=== PATIENT | male | born 1995 | race Caucasian/White ===

== ENCOUNTER 2018-03-29 20:00 | Emergency (ER) | payer OTHER ==
--- NOTE | 2018-03-29 19:57 | ER Report ---
History and Physical Time Seen By MD: 19:57 (MANOLO VALVERDE DO) HPI/ROS CHIEF COMPLAINT: Ruptured dislocation of left ankle HISTORY OF PRESENT ILLNESS: 23-year-old male [place] crashing on a skateboard. He called EMS to bring him in. He has obvious deformity of his left ankle. It's rotated about 90 and pushed off the backside of the tibia. He is a tiny abrasion. There is no obvious open fracture. The foot has neurovascular compromise is somewhat bluish in nature and congestion. She's complaining of 10/10 pain. He received Zofran 4 mg IV and fentanyl 100 g by EMS in the field. His foot was splinted in a pillow in a position of comfort. Patient denies any other injuries. Patient was asked about his tetanus status. He thinks he is less than 10 years and up-to-date. (MANOLO VALVERDE DO) Allergies: Coded Allergies: No Known Drug Allergies (Unverified , 06/20/17) Home Meds Active Scripts Hydrocodone Bit/Acetaminophen (NORCO 5-325 TABLET) 1 Each Tablet, 1-2 EACH PO Q4H PRN for PAIN, #20 TAB Prov:MANOLO VALVERDE DO 03/29/18 Hydrocodone Bit/Acetaminophen (HYDROCODON-ACETAMINOPHEN 5-325) 1 Each Tablet, 1 EACH PO Q4-6H PRN for PAIN, #12 TAB Prov:JOVITA SELLERS FIELD AGRONOMIST 06/20/17 Past Medical/Surgical History History of dislocated left shoulder skateboarding 2016 (MANOLO VALVERDE DO) Reviewed Nurses Notes: Yes Old Medical Records Reviewed: Yes (MANOLO VALVERDE DO) Hx Smoking: No Hx Substance Use Disorder: No (MANOLO VALVERDE DO) Constitutional Vital Sign - Last 24 Hours 03/29/18 03/29/18 03/29/18 03/29/18 20:02 20:02 20:03 20:04 Temp 99.1 Pulse 75 72 74 72 Resp 27 46 16 B/P (MAP) 128/87 128/87 (101) Pulse Ox 98 97 98 98 O2 Delivery Room Air 03/29/18 03/29/18 03/29/18 03/29/18 20:05 20:06 20:07 20:08 Pulse 74 75 71 74 Resp 33 22 25 32 Pulse Ox 96 97 98 98 03/29/18 03/29/18 03/29/18 03/29/18 20:09 20:10 20:11 20:12 Pulse 81 81 73 78 Resp 25 11 19 22 Pulse Ox 95 96 92 91 03/29/18 03/29/18 03/29/18 03/29/18 20:13 20:14 20:15 20:16 Pulse 73 79 74 76 Resp 54 28 31 30 Pulse Ox 90 93 95 95 03/29/18 03/29/18 03/29/18 03/29/18 20:17 20:18 20:19 20:20 Pulse 71 76 72 67 Resp 50 36 26 25 Pulse Ox 97 97 99 100 03/29/18 03/29/18 03/29/18 03/29/18 20:21 20:22 20:23 20:24 Pulse 69 77 84 66 Resp 21 25 9 B/P (MAP) 139/93 (108) 128/87 (101) Pulse Ox 100 100 100 99 03/29/18 03/29/18 03/29/18 03/29/18 20:25 20:26 20:27 20:28 Pulse 61 73 ? Resp 11 16 18 46 B/P (MAP) 124/84 (97) 117/85 (96) Pulse Ox 99 100 97 99 03/29/18 03/29/18 03/29/18 03/29/18 20:29 20:30 20:31 20:32 Pulse 57 73 59 ??? Resp 18 25 26 20 B/P (MAP) 127/86 (100) 130/86 (101) Pulse Ox 100 100 100 100 03/29/18 03/29/18 03/29/18 03/29/18 20:33 20:34 20:35 20:36 Pulse 57 58 59 55 Resp 12 10 20 28 B/P (MAP) 133/88 (103) 122/89 (100) Pulse Ox 100 100 100 88 03/29/18 03/29/18 03/29/18 03/29/18 20:37 20:38 20:39 20:40 Pulse 54 54 61 ??? Resp 16 12 15 28 B/P (MAP) 131/94 (106) 128/88 (101) Pulse Ox 100 100 100 100 03/29/18 03/29/18 03/29/1818 20:41 20:42 20:43 20:44 Pulse 69 58 67 61 Resp 33 16 25 21 B/P (MAP) 135/93 (107) 140/102 (115) Pulse Ox 98 83 98 80 03/29/18 03/29/18 03/29/18 03/29/18 20:45 20:46 20:47 20:48 Pulse 67 62 60 58 Resp 18 48 25 32 B/P (MAP) 125/94 (104) 122/91 (101) Pulse Ox 100 85 100 94 03/29/18 03/29/18 03/29/18 03/29/18 20:49 20:50 20:51 20:52 Pulse 58 ??? 58 60 Resp 40 15 19 17 B/P (MAP) 124/96 (105) 127/94 (105) Pulse Ox 100 100 100 99 03/29/18 03/29/18 03/29/18 03/29/18 20:53 20:54 20:55 20:56 Pulse 70 68 64 73 Resp 35 14 23 32 Pulse Ox 100 98 93 90 03/29/18 03/29/18 03/29/18 03/29/18 20:57 20:58 20:59 21:00 Pulse 69 73 61 72 Resp 23 27 28 9 B/P (MAP) 123/81 (95) Pulse Ox 89 92 92 94 03/29/18 03/29/18 03/29/18 03/29/18 21:01 21:02 21:04 21:05 Pulse 70 65 63 74 Resp 21 11 41 11 Pulse Ox 92 88 97 88 03/29/18 03/29/18 03/29/18 21:06 21:07 21:14 Pulse 74 69 85 Resp 22 24 16 B/P (MAP) 132/81 (98) Pulse Ox 87 90 92 O2 Delivery Room Air [facility] Physical Exam General appearance: Moderate Respiratory: Chest is non tender, lungs are clear to auscultation. Cardiac: Regular rate and rhythm Extremities: Examination of the left lower extremity reveals obvious deformity. The left ankle is rotated 90 externally and the ankle has been displaced posteriorly off the end of the ankle mortise. Foot appears mildly cyanotic. There is capillary refill. Patient notes moderate pain with any palpation or movement. There is an abrasion over the anterior skin of the ankle. There is no obvious penetration or open fracture noted DIFFERENTIAL DIAGNOSIS: After history and physical exam differential diagnosis was considered for sprain, strain, fracture, dislocation, contusion, abrasion (MANOLO VALVERDE DO) Medical Decision Making EKG/Imaging Imaging X-ray: Left ankle, 3 views was obtained. I viewed the images myself on the PACS system. My interpretation of the images is: Obvious fracture of the distal shaft of the fibula, there is displacement of the talus posteriorly, there is no obvious fracture of the medial malleolus.. The radiologist interpretation had no clinically significant variation from this interpretation. X-ray: Left ankle, 2 views was obtained. I viewed the images myself on the PACS system. My interpretation of the images is: There is reduction of the obvious dislocation. There is good alignment. There is still the distal fibular fracture that is mildly displaced now.. The radiologist interpretation had no clinically significant variation from this interpretation. (MANOLO VALVERDE DO) ED Course/Re-evaluation Clinical Indication for ER IV: Hydration, IV Access ED Course Patient was admitted to an examination room by EMS. H&P was done. The differential diagnoses was considered. Diagnostic x-rays were performed. Patient with obvious deformity and dislocation of his left ankle. Diagnostic x- rays show dislocation and fracture of the distal fibula. Patient's foot appears to be vascularly compromised. A discussion about conscious sedation was had with the patient. He had previous constipation here approximately 10 months ago in June for dislocated left shoulder from skateboarding. He tolerated the procedure well. At that time. Patient gives verbal consent as well as written consent. The risks and benefits were discussed. Nurse practitioner, Deejay Coughlin was recruited to assist in relocation of the left ankle dislocation. He performed a procedure under my supervision while I performed conscious sedation. He apply traction and internal rotation and had good reduction of the dislocation. Neurovascular function was confirmed intact. Patient's anterior abrasion was dressed with anabolic ointment and Adaptic. He was then placed in a posterior splint and a stirrup splint to stabilize his unstable ankle and fibular fracture. Patient was equipped with crutches and discharged home after an hour of observation. She was provided a prescription for [place] for pain relief. Patient has [employer] insurance of the following up at the [facility] in [facility]. She'll he was given information to follow up with Dr. Villaseñor orthopedic surgeon here in [facility]. Procedure: Procedural sedation. A pre-sedation evaluation was completed on the patient at what time?. Patient is an appropriate candidate for procedural sedation. The risks of the sedation were discussed with the patient. A time out was completed. The patient was r eevaluated immediately prior to initiation of sedation. The patient was sedated with propofol 150 mg IV. The patient was monitored with continuous pulse oximetry and nurse monitoring. There were no complications and no significant hypoxemia. I remained at the bedside for the sedation. The total time I spent in the procedural sedation was 20 minutes. Post sedation evaluation: Patient was alert and cooperative, hemodynamically stable with appropriate respiratory status, temperature and pain control without ongoing nausea and vomiting. Decision to Disposition Date: Mar 29, 2018 Decision to Disposition Time: 20:39 (MANOLO VALVERDE DO) ED Course Procedure: Dislocation and fracture reduction: The left ankle dislocation and tibialtalar was reduced in the usual fashion without complications. Post reduction the patient's neurovascular exam is normal. Post reduction x-ray demonstrates reduction of the joint to the anatomic position. Was secured with a stirrup and short posterior splint. The procedure was performed by myself and Dr. Valverde. (DEEJAY COUGHLIN-OLAYINKA) Depart Departure Latest Vital Signs Vital Signs Date Time Temp Pulse Resp B/P (MAP) Pulse Ox O2 Delivery O2 Flow Rate FiO2 03/29/18 21:14 85 16 132/81 (98) 92 Room Air 03/29/18 20:02 99.1 (DEEJAY COUGHLIN-) Impression: Primary Impression: Dislocation of left ankle joint, initial encounter Additional Impressions: Fractured fibula Other skateboard accident, initial encounter Condition: Improved Disposition: HOME OR SELF-CARE Referrals: AUGUSTO VILLASEÑOR MD New Scripts Hydrocodone Bit/Acetaminophen (NORCO 5-325 TABLET) 1 Each Tablet 1-2 EACH PO Q4H PRN for PAIN, #20 TAB Prov: MANOLO VALVERDE DO 03/29/18 Patient Instructions: Ankle Dislocation (ED), Ankle Fracture (ED) Additional Instructions: Take ibuprofen 200 mg 3 tablets 3 times a day with food Elevate foot and apply ice No weightbearing Follow-up with orthopedics, Dr. Villaseñor orthopedic surgery early next week Problem Qualifiers Additional Impressions: Fractured fibula Encounter type: initial encounter Fibula location: shaft Fracture type: closed Fracture morphology: oblique Fracture alignment: displaced Laterality: left Qualified Codes: S82.432A - Displaced oblique fracture of shaft of left fibula, initial encounter for closed fracture MANOLO VALVERDE DO Mar 29, 2018 19:57 DEEJAY COUGHLIN FIELD AGRONOMIST- Mar 29, 2018 21:09
[~2018-03-29 20:00] MED LIST changes: -HYDR-4309 PO
[2018-03-29] MEDS ORDERED: PROPOFOL EMUL 10MG/ML 20 ML VL IV ONE (20:05)
--- NOTE | 2018-03-29 20:34 | RADIOLOGY IMAGING REPORT ---
FACILITY: [facility] PATIENT NAME: Jadiel Resendiz : 1995 MR: [id number] V: [id number] EXAM DATE: ORDERING PHYSICIAN: MANOLO BARTLETT TECHNOLOGIST: Location: [facility] Patient: Jadiel Resendiz : 1995 Visit/Account:[id number] Date of Sevice: 03/29/2018 Examination: ANKLE 3 VIEW MIN LEFT Comparison: None. History: dislocated skateboarding Findings: Markedly displaced and angulated oblique fracture of the left fibula distal diametaphysis. The distal fracture fragment is displaced greater than 100% shaft width laterally and there is signif icant apex medial and anterior angulation. The tibiotalar joint is completely disrupted with the talus dislocated laterally and rotated 90 degre es relative to the tibial plafond. The tibiofibular joint is completely disrupted and the talus stephan nues to articulate with the displaced fibula fragment. No definite tibia or talar fracture is identif ied. Alignment appears grossly maintained throughout the visualized foot. Diffuse soft tissue swelling. IMPRESSION: Left ankle fracture-dislocation as described above. Report Dictated By: Fazal Sanz MD at 03/29/2018 8:25 PM Report E-Signed By: Fazal Sanz MD at 03/29/2018 8:29 PM WSN:[id number]
[2018-03-29] MEDS ORDERED: HYDR-4309 PO (20:43)
--- NOTE | 2018-03-29 20:51 | RADIOLOGY IMAGING REPORT ---
FACILITY: [facility] PATIENT NAME: Jadiel Resendiz : 1995 MR: [id number] V: [id number] EXAM DATE: ORDERING PHYSICIAN: MANOLO BARTLETT TECHNOLOGIST: Location: [facility] Patient: Jadiel Resendiz : 1995 Visit/Account:[id number] Date of Sevice: 03/29/2018 EXAMINATION: Left ankle 2 views HISTORY: Post reduction. COMPARISON: Prior study of earlier today. FINDINGS: Interval reduction of the prior left ankle fracture-dislocation. Significant improvement in anatomic alignment. Oblique fracture of the distal left fibular shaft, also with improved alignment. No other new osseous findings. Surrounding soft tissue swelling with new overlying splint material. IMPRESSION: 1. Closed reduction of the prior tibiotalar dislocation, with improved anatomic alignment. 2. Distal fibular fracture again noted, with improved alignment. No other new osseous findings. Report Dictated By: Chuy Baker MD at 03/29/2018 8:46 PM Report E-Signed By: Chuy Baker MD at 03/29/2018 8:49 PM WSN:[id number]
[2018-03-29 21:14] VITALS: BP 132/81
[2018-03-29] MEDS ORDERED: ACET/HYDROC 5/325MG TH ER ONLY 2 TAB/BOTTLE PO ONE ×2 (21:15)
== END 2018-03-29 21:22 | disposition home or self-care (01) ==
LOC: ER 20:06
DX: S82.432A Displaced oblique fracture of shaft of left fibula, initial encounter for closed fracture (principal); S93.05XA Dislocation of left ankle joint, initial encounter; V00.131A Fall from skateboard, initial encounter
CPT/HCPCS: 27788; 73600; 73610; 99152; 99153; 99285; J2704

== ENCOUNTER → 2018-03-29 | Outpatient (CLI) | payer OTHER ==
[~2018-03-29] MED LIST: CYCL10TA29 PO; HYDR-385 PO; HYDR-4309 PO; IBUP800T37 PO; KET10 PO; LOR5/325 PO; ONDA4TAB PO
== END ==
LOC: AMB 19:31
PROVIDERS: ATTEND Nurse Practitioner
DX: M25.572 Pain in left ankle and joints of left foot (principal); W19.XXXA Unspecified fall, initial encounter; Y93.51 Activity, roller skating (inline) and skateboarding; Y92.830 Public park as the place of occurrence of the external cause
CPT/HCPCS: A0425; A0433